=== PATIENT | female | born 1995 | race Two or more races ===

== ENCOUNTER 2017-11-09 11:51 | Emergency (ER) | payer OTHER ==
[~2017-11-09] VITALS: Ht 157.5 cm; Wt 60.0 kg
[~2017-11-09 11:51] MED LIST: AQUAPHOR W-NAT50 GM TP; CLARITIN10 M3 PO; DEPO-PROVER150 MG/ML IM; DESOWEN60 GM TP; DESYREL100 MG PO; FIORICET WI1 CAPSULE PO; FIORICET,ESG1 TABLET PO; KEFLEX500 MG PO; KLONOPIN0.5 M1 PO; MEDROL DOSEPAK4 MG PO; MEDROXYPRO150 MG/1 M IM; MOTRIN800 MG PO
[2017-11-09 14:36] LABS: APPEARANCE CLOUDY ((CLEAR)); BILIRUBIN NEGATIVE; BLOOD SMALL; COLOR YELLOW ((YELLOW)); GLUCOSE (STRIP) NEGATIVE; KETONES 80; LEUKOCYTES MODERATE; NITRITE NEGATIVE; PROTEIN (STRIP) 30; SPECIFIC GRAVITY 1.023 (1.000-1.030)
[2017-11-09 14:41] LABS: HEMATOCRIT 38.5 % (36.0-46.0); HEMOGLOBIN 12.9 G/DL (11.9-15.5); MCH 29.8 PG (29.0-34.0); MCHC 33.5 G/DL (30.0-36.0); MCV 88.9 FL (83-99); PLATELET COUNT 241 K/uL (156-360); RBC DIS.WIDTH-CV 12.1 % (11.8-14.6); RBC DIS.WIDTH-SD 39.7 % (39-53); RED BLOOD COUNT 4.33 M/uL (3.80-5.20)
[2017-11-09 14:54] LABS: ALBUMIN 3.3 g/dL (3.2-4.8); CHLORIDE 104 mEq/L (99-109); POTASSIUM 3.6 mEq/L (3.7-5.4)
[2017-11-09 14:55] LABS: SODIUM 133 mEq/L (136-147)
[2017-11-09 14:57] LABS: GLUCOSE 87 mg/dL (70-99); TOTAL PROTEIN 5.7 g/dL (6.4-8.3)
[2017-11-09 14:59] LABS: TOTAL BILIRUBIN 0.6 mg/dL (0.0-1.0)
[2017-11-09 14:59] LABS: BACTERIA 1+ /HPF; EPITHELIAL CELLS 4+ /HPF; HYALINE CASTS 0-5 /LPF; MUCUS 3+ /LPF; UCUL ADDED? YES; WHITE BLOOD CELLS TNTC /HPF (0-5)
[2017-11-09 15:00] LABS: ALKALINE PHOSPHATASE 32 IU/L (3-129); CREATININE 0.6 mg/dL (0.6-1.3); GFR ESTIMATE (CALCULATED) > 59 mL/min/
[2017-11-09 15:02] LABS: AST (GOT) 29 IU/L (2-34); UREA NITROGEN (BUN) 6 mg/dL (9-23)
[2017-11-09 15:03] LABS: ALT (GPT) 23 IU/L (3-49)
[2017-11-09 15:27] LABS: QUANTITATIVE HCG 38482.2 MIU/ML
[2017-11-09] MEDS ORDERED: KEFLEX500 MG PO (19:52)
[2017-11-09] MEDS ORDERED: ZOFRAN4 MG PO (19:53)
[2017-11-09 20:12] VITALS: BP 125/68
== END 2017-11-09 20:13 | disposition home or self-care (01) ==
LOC: EME 11:51
PROVIDERS: Physician Assistant Medical
DX: O23.41 Unspecified infection of urinary tract in pregnancy, first trimester (principal); O21.9 Vomiting of pregnancy, unspecified; Z3A.01 Less than 8 weeks gestation of pregnancy; O99.511 Diseases of the respiratory system complicating pregnancy, first trimester; J45.909 Unspecified asthma, uncomplicated; O99.341 Other mental disorders complicating pregnancy, first trimester; F41.9 Anxiety disorder, unspecified; F32.9 Major depressive disorder, single episode, unspecified
CPT/HCPCS: 76801; 80053; 81003; 84702; 85027; 87077; 87086; 99281; 99285; J2405; J7030

== ENCOUNTER 2017-11-12 17:08 | Emergency (ER) | payer OTHER ==
[~2017-11-12] VITALS: Ht 157.5 cm; Wt 61.1 kg
[~2017-11-12 17:08] MED LIST changes: +ZOFRAN4 MG PO
[2017-11-12 17:25] VITALS: BP 121/74
[2017-11-12 17:53] LABS: HEMATOCRIT 36.5 % (36.0-46.0); HEMOGLOBIN 12.3 G/DL (11.9-15.5); MCH 29.9 PG (29.0-34.0); MCHC 33.7 G/DL (30.0-36.0); MCV 88.6 FL (83-99); PLATELET COUNT 284 K/uL (156-360); RBC DIS.WIDTH-CV 12.1 % (11.8-14.6); RBC DIS.WIDTH-SD 39.5 % (39-53); RED BLOOD COUNT 4.12 M/uL (3.80-5.20); WHITE BLOOD COUNT 9.5 K/uL (4.1-10.2)
[2017-11-12] MEDS ORDERED: PRENATAL TABLE1 EAC3 PO (19:43)
[2017-11-12 19:52] LABS: APPEARANCE CLOUDY ((CLEAR)); BILIRUBIN NEGATIVE; BLOOD MODERATE; COLOR YELLOW ((YELLOW)); GLUCOSE (STRIP) NEGATIVE; KETONES NEGATIVE; LEUKOCYTES LARGE; NITRITE NEGATIVE; PROTEIN (STRIP) 30; SPECIFIC GRAVITY 1.016 (1.000-1.030); UROBILINOGEN 0.2 MG/DL (0.2-1.0)
[2017-11-12 20:19] LABS: BACTERIA 2+ /HPF; EPITHELIAL CELLS 1+ /HPF; MUCUS NONE SEEN /LPF; RED BLOOD CELLS 15-20 /HPF (0-5); UCUL ADDED? YES; WHITE BLOOD CELLS TNTC /HPF (0-5)
== END 2017-11-12 21:00 | disposition home or self-care (01) ==
LOC: EME 17:08
DX: O23.41 Unspecified infection of urinary tract in pregnancy, first trimester (principal); O99.511 Diseases of the respiratory system complicating pregnancy, first trimester; J45.909 Unspecified asthma, uncomplicated; O99.341 Other mental disorders complicating pregnancy, first trimester; F41.9 Anxiety disorder, unspecified; F32.9 Major depressive disorder, single episode, unspecified; Z3A.01 Less than 8 weeks gestation of pregnancy
CPT/HCPCS: 81003; 84702; 85027; 87077; 87086; 99281; 99285

== ENCOUNTER 2017-12-31 18:15 | Emergency (ER) | payer OTHER ==
[~2017-12-31] VITALS: Ht 157.5 cm; Wt 59.1 kg
[~2017-12-31 18:15] MED LIST changes: +PRENATAL TABLE1 EAC3 PO
[2017-12-31 19:00] LABS: HEMATOCRIT 34.9 % (36.0-46.0); MCH 29.6 PG (29.0-34.0); MCHC 34.4 G/DL (30.0-36.0); PLATELET COUNT 285 K/uL (156-360); RBC DIS.WIDTH-CV 11.8 % (11.8-14.6); RBC DIS.WIDTH-SD 37.2 % (39-53); RED BLOOD COUNT 4.06 M/uL (3.80-5.20); WHITE BLOOD COUNT 10.5 K/uL (4.1-10.2)
[2017-12-31 19:13] LABS: CHLORIDE 104 mEq/L (99-109); SODIUM 135 mEq/L (136-147)
[2017-12-31 19:15] LABS: GLUCOSE 102 mg/dL (70-99)
[2017-12-31 19:18] LABS: CREATININE 0.6 mg/dL (0.6-1.3); GFR ESTIMATE (CALCULATED) > 59 mL/min/
[2017-12-31 19:19] LABS: UREA NITROGEN (BUN) 5 mg/dL (9-23)
[2017-12-31 21:55] LABS: APPEARANCE SL.HAZY ((CLEAR)); BILIRUBIN NEGATIVE; BLOOD NEGATIVE; COLOR YELLOW ((YELLOW)); GLUCOSE (STRIP) NEGATIVE; KETONES 80; LEUKOCYTES NEGATIVE; NITRITE NEGATIVE; PROTEIN (STRIP) 30; UROBILINOGEN 0.2 MG/DL (0.2-1.0)
[2017-12-31 22:01] LABS: BACTERIA RARE /HPF; EPITHELIAL CELLS 1+ /HPF; MUCUS 1+ /LPF; RED BLOOD CELLS 0-5 /HPF (0-5); UCUL ADDED? NO; WHITE BLOOD CELLS 0-5 /HPF (0-5)
[2018-01-01 00:54] VITALS: BP 124/78
[2018-01-01] MEDS ORDERED: ZOFRAN ODT4 MG PO (01:04)
== END 2018-01-01 00:59 | disposition home or self-care (01) ==
LOC: EME 18:15
DX: O99.89 Other specified diseases and conditions complicating pregnancy, childbirth and the puerperium (principal); R51 Headache; O21.9 Vomiting of pregnancy, unspecified; O99.512 Diseases of the respiratory system complicating pregnancy, second trimester; J45.909 Unspecified asthma, uncomplicated; O99.342 Other mental disorders complicating pregnancy, second trimester; F41.9 Anxiety disorder, unspecified; F32.9 Major depressive disorder, single episode, unspecified; Z86.69 Personal history of other diseases of the nervous system and sense organs; Z3A.15 15 weeks gestation of pregnancy
CPT/HCPCS: 80048; 81003; 85027; 99281; 99284; J1200; J2405; J7030

== ENCOUNTER 2018-01-05 11:39 | Emergency (ER) | payer OTHER ==
[~2018-01-05] VITALS: Ht 157.5 cm; Wt 59.1 kg
[~2018-01-05 11:39] MED LIST changes: +ZOFRAN ODT4 MG PO
[2018-01-05] MEDS ORDERED: FLEXERIL10 MG PO (15:09)
[2018-01-05] MEDS ORDERED: ZANTAC150 MG PO (15:09)
[2018-01-05] MEDS ORDERED: GUAIFENESIN600 M1 PO (15:09)
[2018-01-05] MEDS ORDERED: RHINOCORT ALL8.43 ML BOTH NARES (15:09)
[2018-01-05] MEDS ORDERED: BENADRYL25 MG PO (15:09)
[2018-01-05 15:13] VITALS: BP 119/76
== END 2018-01-05 15:14 | disposition home or self-care (01) ==
LOC: EME 11:39
DX: O99.352 Diseases of the nervous system complicating pregnancy, second trimester (principal); G43.909 Migraine, unspecified, not intractable, without status migrainosus; Z3A.15 15 weeks gestation of pregnancy; O99.342 Other mental disorders complicating pregnancy, second trimester; F32.9 Major depressive disorder, single episode, unspecified; F41.9 Anxiety disorder, unspecified
CPT/HCPCS: 99281; 99284

== ENCOUNTER 2018-01-17 19:46 | Emergency (ER) | payer OTHER ==
[~2018-01-17] VITALS: Ht 157.5 cm; Wt 58.9 kg
[~2018-01-17 19:46] MED LIST changes: +BENADRYL25 MG PO; +FLEXERIL10 MG PO; +GUAIFENESIN600 M1 PO; +RHINOCORT ALL8.43 ML BOTH NARES; +ZANTAC150 MG PO
[2018-01-17 21:22] LABS: HEMATOCRIT 29.8 % (36.0-46.0); HEMOGLOBIN 10.1 G/DL (11.9-15.5); MCH 28.8 PG (29.0-34.0); MCHC 33.9 G/DL (30.0-36.0); MCV 84.9 FL (83-99); PLATELET COUNT 272 K/uL (156-360); RBC DIS.WIDTH-SD 37.1 % (39-53); RED BLOOD COUNT 3.51 M/uL (3.80-5.20); WHITE BLOOD COUNT 7.6 K/uL (4.1-10.2)
[2018-01-17 21:31] LABS: CHLORIDE 104 mEq/L (99-109)
[2018-01-17 21:32] LABS: POTASSIUM 3.3 mEq/L (3.7-5.4); SODIUM 134 mEq/L (136-147)
[2018-01-17 21:33] LABS: GLUCOSE 78 mg/dL (70-99)
[2018-01-17 21:37] LABS: CREATININE 0.6 mg/dL (0.6-1.3); GFR ESTIMATE (CALCULATED) > 59 mL/min/
[2018-01-17 21:38] LABS: UREA NITROGEN (BUN) 6 mg/dL (9-23)
[2018-01-17 22:03] LABS: QUANTITATIVE HCG 40316.6 MIU/ML
[2018-01-17] MEDS ORDERED: FIORICET 50-301 EAC1 PO (22:37)
[2018-01-18 00:01] VITALS: BP 119/71
== END 2018-01-18 00:02 | disposition home or self-care (01) ==
LOC: EME 19:46
PROVIDERS: Nurse Practitioner Family
DX: O99.89 Other specified diseases and conditions complicating pregnancy, childbirth and the puerperium (principal); R51 Headache; Z3A.00 Weeks of gestation of pregnancy not specified; O99.342 Other mental disorders complicating pregnancy, second trimester; F41.9 Anxiety disorder, unspecified; F32.9 Major depressive disorder, single episode, unspecified
CPT/HCPCS: 80048; 84702; 85027; 93005; 99281; 99285; J1200; J1885; J2765; J7030

== ENCOUNTER 2018-02-22 12:48 | Emergency (ER) | payer OTHER ==
[~2018-02-22] VITALS: Ht 157.5 cm; Wt 59.7 kg
[~2018-02-22 12:48] MED LIST changes: +FIORICET 50-301 EAC1 PO
[2018-02-22] MEDS ORDERED: MOTRIN800 MG PO (13:33)
[2018-02-22 13:57] VITALS: BP 132/90
== END 2018-02-22 13:59 | disposition home or self-care (01) ==
LOC: EME 12:48
DX: S90.32XA Contusion of left foot, initial encounter (principal); S93.602A Unspecified sprain of left foot, initial encounter; X50.9XXA Other and unspecified overexertion or strenuous movements or postures, initial encounter; F32.9 Major depressive disorder, single episode, unspecified; F41.9 Anxiety disorder, unspecified
CPT/HCPCS: 73630; 99281; 99283